=== PATIENT | female | born 1990 | race Caucasian/White ===

== ENCOUNTER 2016-04-29 10:52 | Emergency (ER) | payer SELFPAY ==
[~2016-04-29] VITALS: Ht 162.6 cm; Wt 121.0 kg
[2016-04-29] MEDS ORDERED: ONDANSETRON 4 MG (ZOFRAN) ORAL DISSOLVE TAB PO ONE (11:40)
[2016-04-29 12:26] VITALS: BP 104/53
== END 2016-04-29 12:26 | disposition home or self-care (01) ==
LOC: ED 10:54
DX: K52.9 Noninfective gastroenteritis and colitis, unspecified (principal); J06.9 Acute upper respiratory infection, unspecified; J98.01 Acute bronchospasm
CPT/HCPCS: 71020; 99283

== ENCOUNTER 2016-05-02 13:06 | Emergency (ER) | payer SELFPAY ==
[~2016-05-02] VITALS: Ht 162.6 cm; Wt 99.1 kg
[2016-05-02 14:06] VITALS: BP 116/81
== END 2016-05-02 14:07 | disposition home or self-care (01) ==
LOC: EDUNIT# 13:06 → ED 13:08
DX: J20.9 Acute bronchitis, unspecified (principal)
CPT/HCPCS: 99282; 99283

== ENCOUNTER 2016-08-07 15:21 | Emergency (ER) | payer SELFPAY ==
[~2016-08-07] VITALS: Ht 162.6 cm; Wt 97.8 kg
[~2016-08-07 15:21] MED LIST: AC325T; ACET-789 PO; ALBU8.5H6 IH; AZIT250T81 PO; BUSPAR PO; CEPH-331 PO; CODE118S2 PO; CYCL10TA45 PO; DESO1TAB PO; DPH25C PO; FLUO20CA42 PO; GFCD10B GT; HYDR-3702 PO; HYDR-3754 PO; HYDR-3811 PO; IBUP-1772 PO; LANS15CA16 PO; MDR10T PO; MECL100C PO; MEDR10TA PO; No home medications; ONDA4TAB8 PO; PENI500T PO; PRCD5U PO; PREN-108; SULF-228 PO; TRAM-25 PO; TRM50T PO; trazadone
--- OUTSIDE RECORDS SUMMARY | 2016-08-07 15:26 | XMS REPORT | Continuity of Care Document ---
Author Author [facility] Organization [facility] Address Unknown Phone Unavailable Support Name Relationship Address Phone FRANCIA GARRETT MD Caregiver [address] [place] [address] JON RUIZ Next Of Kin [address] [place], [place] [address] Insurance Providers Payer Name Policy Number Subscriber Name Relationship Self Pay Alexus Santos 16 Self / Same As Patient Chief Complaint and Reason for Visit Chief Complaint Gynecological Complaint Reason for Visit Vaginal bleeding Problems Medical Problems Problem Onset Date Status Dental caries 02/07/2013 Resolved Abnormal vaginal bleeding 03/17/2013 Resolved Allergic urticaria 05/09/2013 Resolved Nausea and vomiting ~08/09/2013 Resolved Acute upper respiratory infection ~08/09/2013 Resolved Normal labor 10/01/2013 Resolved Vaginal delivery Unknown Resolved Left ankle pain ~01/04/2014 Resolved Ankle injury ~01/04/2014 Resolved Viral syndrome ~02/11/2014 Resolved Dysfunctional uterine bleeding Unknown Resolved Palpitations Unknown Resolved Bronchitis Unknown Resolved Foot pain, left ~09/27/2014 Active Vaginal bleeding Unknown Active Medications Medication Dose Route Sig Days/Qty Instructions Order Date Discontinued Date Status Trimethoprim/Sulfamethoxazole 1 Ea ORAL TWICE A DAY 30 Qty 12/02/12 Discontinued Hydrocodone Bit/Acetaminophen 1 Tab ORAL Q 4H PRN 10 Qty Pain 12/02/12 02/07/13 Discontinued Acetaminophen NEEDED 02/07/13 03/16/13 Discontinued Vit #108/Iron/Fa DAILY 02/07/13 08/02/14 Discontinued Acetaminophen With Codeine 1 Each ORAL q4hrs prn 10 Qty 02/07/1303/16 Discontinued Lansoprazole 15 Mg ORAL TWICE A DAY 03/16/13 10/03/13 Discontinued Codeine/Promethazine Hcl 5 Ml ORAL EVERY 6 HOURS PRN cough 4 Qty 10/03/13 Discontinued Ibuprofen (Motrin) 600 Mg ORAL EVERY 6 HOURS 10/03/13 08/02/14 Discontinued Fluoxetine Hcl 20 Mg ORAL DAILY 01/04/14 08/02/14 Discontinued [trazadone] 02/14/14 08/02/14 Discontinued Medroxyprogesterone Acet 10 Mg ORAL DAILY 10 Qty 04/13/14 08/02/14 Discontinued [No home medications] 08/02/14 Active Guaifenesin/Codeine 10 Ml GT BEDTIME 120 Qty 2 teasp po qHS prn severe cough 08/06/14 09/27/14 Discontinued Tramadol Hcl 50 Mg ORAL THREE TIMES A DAY For pain 15 Qty 09/27/14 Active Social History No social history. Hospital Discharge Instructions No hospital discharge instructions. Plan of Care Discharge Date 11/12/14 8:33pm Disposition 01 HOME OR SELF-CARE Condition at Discharge Stable Prescriptions See Medications Section Additional Instructions/Education ED BERTO if any worse. Follow up with your doctor. Some of your test results may not be complete prior to your leaving the Emergency Department. The Emergency Department is not authorized to give test results over the phone. Please contact the doctor's office listed in this packet of information for your final results. Follow up with your primary care physician or return to the Emergency Department for worsening or worrisome symptoms. * Emergency Department phone number: [phone], x [phone]* MEDICAL RECORD If you need copies of your X-rays, call [phone]. If you need copies of your medical record, including lab results, a signed authorization for release of records will be required. A telephone call for release of Health Information is not allowed. BILLING Billing can sometimes be confusing and frustrating. To help avoid confusion in the future, please take a moment to acquaint yourself with the billing parties for services. SERVICE BILLING REPUBLICAN Emergency Room Services [facility] Physician Services [facility] X-rays [place] [facility] Patients will receive bills for services from the appropriate provider. If you have any questions about your [facility] bill, our staff will be happy to assist you. Please call [phone], and ask for the billing department. THANK YOU for choosing [facility] as your emergency care provider! Functional Status No functional status results. Allergies, Adverse Reactions, Alerts Allergen Type Severity Reaction Status Last Updated No Known Allergies Allergy Unknown Active 08/10/13 PEANUTS Allergy Unknown Active 08/10/13 Immunizations No immunization records. Vital Signs Acute Vital Signs Vital Response Date/Time Temperature (Fahrenheit) 98.4 Pulse 89 bpm Respirations 20 Height 5 ft 4 in Weight 226 lb Body Mass Index 38.0 kg/m^2 Results Test Source Date Result Interp. Ref. Range Comments Absolute Neutrophil December 02, 2012 9:20am 0.7 # Alanine Aminotransferase (ALT/SGPT) November 12, 2014 6:30pm 92 U/L H 30- 65 Albumin November 12, 2014 6:30pm 4.5 g/dL N 3.4-5.0 Albumin/Globulin Ratio November 12, 2014 6:30pm 1.250 N 1.1-1.8 Alkaline Phosphatase November 12, 2014 6:30pm 72 U/L N 38-126 Anion Gap November 12, 2014 6:30pm 13.7 MEQ/L N 3-15 Aspartate Amino Transf (AST/SGOT) November 12, 2014 6:30pm 76 U/L H 15-37 BUN/Creatinine Ratio November 12, 2014 6:30pm 13 N 10-20 Band Neutrophils % December 02, 2012 9:20am 5 % N 0-6 Basophils # (Auto) November 12, 2014 6:30pm 0.1 10^3uL Basophils % (Manual) December 02, 2012 9:20am 0 % N 0-2 Basophils (%) (Auto) November 12, 2014 6:30pm 1 % N 0-2 Blood Morphology Comment December 02, 2012 9:20am Normal NORMAL Blood Urea Nitrogen November 12, 2014 6:30pm 10 mg/dL N 7-18 Calcium Level November 12, 2014 6:30pm 9.4 mg/dL N 8.8-10.8 Calcium/Ionized Calcium Ratio November 12, 2014 6:30pm 3.8 mg/dL N 3.8- 4.6 Calculated Osmolality November 12, 2014 6:30pm 273 mosm/L L 280-300 Carbon Dioxide Level November 12, 2014 6:30pm 28 mmol/L N 22-29 Chloride Level November 12, 2014 6:30pm 105 mmol/L N 98-108 Cholesterol Level March 10, 2014 5:00am 157 mg/dL 0-199 Creatinine November 12, 2014 6:30pm 0.80 mg/dL N 0.6-1.2 Differential Total Cells Counted December 02, 2012 9:20am 100 Eosinophils # December 02, 2012 9:20am 0.0 # Eosinophils # (Auto) November 12, 2014 6:30pm 0.2 10^3uL Eosinophils % (Manual) December 02, 2012 9:20am 0 % N 0-4 Eosinophils (%) (Auto) November 12, 2014 6:30pm 2 % N 0-4 Estimat Glomerular Filtration Rate November 12, 2014 6:30pm 104.9 Estimated GFR (Non- November 12, 2014 6:30pm 86.7 Membranes Rupture (PAMG-1) September 13, 2013 11:41pm Negative Negative Collected by nurse? YHas specimen been collected/obtained? Y Folate March 10, 2014 5:00am 10.7 ng/mL 7.0-31.4 Glucose Level November 12, 2014 6:30pm 83 mg/dL N 70-110 HDL Cholesterol March 10, 2014 5:00am 24 mg/dL L 40-84 Hematocrit November 12, 2014 6:30pm 41.40 % N 35.00-45.00 Hemoglobin November 12, 2014 6:30pm 14.4 g/dL N 12.0-15.5 Hemoglobin A1c March 10, 2014 5:00am 4.9 % N 4.8-6.0 Human Chorionic Gonadotropin, Quant March 16, 2013 8:30pm 65803 MIU/ML H <6 HCG QUANT REFERENCE RANGES: MALE: <0.5 - 2.67 NON- FEMALE: <0.5 - 2.90 FEMALE: 0.2 - 1 WK: 5 - 50 1 - 2 WK: 50 - 500 2 - 3 WK: 100 - 5,000 3 - 4 WK: 500 - 10,000 4 - 5 WK: 1,000 - 50,000 5 - 6 WK: 10,000 - 100,000 6 - 8 WK: 15,000 - 200,000 8 - 12 WK: 10,000 - 100,000 LDL Cholesterol, Calculated March 10, 2014 5:00am 80 mg/dL 0-130 Lymphocytes # December 02, 2012 9:20am 1.1 # Lymphocytes # (Auto) November 12, 2014 6:30pm 2.2 X10^3 Lymphocytes % (Manual) December 02, 2012 9:20am 8 % L 20-46 Lymphocytes (%) (Auto) November 12, 2014 6:30pm 24 % N 20-46 Mean Corpuscular Hemoglobin November 12, 2014 6:30pm 29.1 PG N 26.0-34.0 Mean Corpuscular Hemoglobin Concent November 12, 2014 6:30pm 34.8 g/dL N 31.0-37.0 Mean Corpuscular Volume November 12, 2014 6:30pm 84 FL N 80-100 Mean Platelet Volume November 12, 2014 6:30pm 11.6 FL H 6.0-9.5 Monocytes # December 02, 2012 9:20am 0.0 # Monocytes # (Auto) November 12, 2014 6:30pm 0.7 X10^3 Monocytes % (Manual) December 02, 2012 9:20am 0 % L 3-11 Monocytes (%) (Auto) November 12, 2014 6:30pm 8 % N 3-11 Neutrophils # December 02, 2012 9:20am 12.2 # Neutrophils # (Auto) November 12, 2014 6:30pm 6.0 X10^3 Neutrophils (%) (Auto) November 12, 2014 6:30pm 66 % N 51-67 Platelet Count November 12, 2014 6:30pm 222 10^3uL N 150-450 Potassium Level November 12, 2014 6:30pm 3.9 mmol/L N 3.5-5.1 Red Blood Count November 12, 2014 6:30pm 4.95 10^6uL N 4.00-5.00 Red Cell Distribution Width November 12, 2014 6:30pm 12.8 % N 11.8-15.6 Segmented Neutrophils % December 02, 2012 9:20am 87 % H 51-67 Sodium Level November 12, 2014 6:30pm 143 mmol/L N 135-150 Streptococcus Screen February 14, 2014 1:12am Negative Negative Thyroid Stimulating Hormone (TSH) March 10, 2014 5:00am 2.80 UIU/ML N 0.46-4.68 --- 03/10/14 0800 ---TSH previously reported as: 4.90 H UIU/ML Thyroxine (T4) March 10, 2014 5:00am 7.9 ug/dL 4.8-11.7 Total Bilirubin November 12, 2014 6:30pm 0.5 mg/dL DN 0.1-1.0 Total Protein November 12, 2014 6:30pm 8.1 g/dL N 6.4-8.5 Total Triiodothyronine March 10, 2014 5:00am 117 ng/dL 87-178 Triglycerides Level March 10, 2014 5:00am 265 mg/dL H 0-149 Urine Bacteria November 12, 2014 6:13pm None seen /HPF Urine collection method Clean Catch Urine Bilirubin November 12, 2014 6:13pm Negative Negative Urine collection method Clean Catch Urine Blood October 01, 2013 12:00am Negative Negative Collected by nurse? YHas specimen been collected/obtained? Y Urine Clarity November 12, 2014 6:13pm Clear Urine collection method Clean Catch Urine Collection Type November 12, 2014 6:13pm Clean catch Urine collection method Clean Catch Urine Color November 12, 2014 6:13pm Yellow Urine collection method Clean Catch Urine Glucose (UA) November 12, 2014 6:13pm Negative Negative Urine collection method Clean Catch Urine Ketones November 12, 2014 6:13pm Negative Negative Urine collection method Clean Catch Urine Leukocyte Esterase November 12, 2014 6:13pm Negative Negative Urine collection method Clean Catch Urine Nitrite November 12, 2014 6:13pm Negative Negative Urine collection method Clean Catch Urine Protein November 12, 2014 6:13pm Negative Negative Urine collection method Clean Catch Urine RBC November 12, 2014 6:13pm 5-10 /HPF H Urine collection method Clean Catch Urine RBC (Auto) November 12, 2014 6:13pm 2+ H Negative Urine collection method Clean Catch Urine Specific [place] November 12, 2014 6:13pm >=1.030 1.005-1.030 Urine collection method Clean Catch Urine Squamous Epithelial Cells November 12, 2014 6:13pm 2-5 /LPF Urine collection method Clean Catch Urine Urobilinogen November 12, 2014 6:13pm 1.0 mg/dL 0.2-1.0 Urine collection method Clean Catch Urine WBC November 12, 2014 6:13pm 0-2 /HPF Urine collection method Clean Catch Urine pH November 12, 2014 6:13pm 5.5 5.0 - 8.0 Urine collection method Clean Catch VLDL Cholesterol March 10, 2014 5:00am 53 mg/dL H 0-28 Vitamin B12 Level March 10, 2014 5:00am 665 pg/mL 213-816 Vitamin D 25-Hydroxy March 10, 2014 5:00am 31 ng/mL 30-74 The desirable level of 25-Hydroxy Vitamin D Total(D2 + D3) is 30-74 ng/mL.A level consistently >200 is potentially toxic. Vitamin D2 March 10, 2014 5:00am <7 ng/mL () Vitamin D3 March 10, 2014 5:00am 31 ng/mL () Volume Urine Centrifuged November 12, 2014 6:13pm 12 ml Urine collection method Clean Catch White Blood Count November 12, 2014 6:30pm 9.07 10^3uL N 4.0-11.0 Blood Culture Peripheral-:Lab Indicates After [place]io December 02, 2012 9: 20pm No Growth in 5 days Wet Prep Vaginal November 12, 2014 6:50pm Group A Streptococcus Culture Throat February 14, 2014 1:12am Procedures No known history of procedures. Encounters Encounter Location Date/Time Departed Emergency Room [facility] 11/12/14 5:45pm Recent Diagnosis
--- OUTSIDE RECORDS SUMMARY | 2016-08-07 15:26 | XMS REPORT | Continuity of Care Document ---
Author Author [facility] Organization [facility] Address Unknown Phone Unavailable Support Name Relationship Address Phone FRANCIA GARRETT MD Caregiver [address] [place] [address] JON RUIZ Next Of Kin [address] [place], [place] [address] Insurance Providers Payer Name Policy Number Subscriber [...] worrisome symptoms. * Emergency Department phone number: [phone], x [phone]* MEDICAL RECORD If you need copies of your X-rays, call [phone] x [phone]. If you need copies of [...] the billing parties for services. SERVICE BILLING LIBERTARIAN Emergency Room Services [facility] Physician Services [facility] X-rays [place] [facility] Patients will receive bills for services from the appropriate provider. If you have any questions about your [facility] bill, our staff will be happy to assist you. Please call [phone], and ask for the billing department. THANK YOU for choosing [facility] as your emergency care provider! Functional Status [...] Chorionic Gonadotropin, Quant March 16, 2013 8:30pm 97637 MIU/ML H <6 HCG QUANT REFERENCE RANGES: [...] Urine collection method Clean Catch Urine Specific [place] November 12, 2014 6:13pm >=1.030 1.005-1.030 Urine [...] Encounters Encounter Location Date/Time Departed Emergency Room [facility] 11/12/14 5:45pm Recent Diagnosis
[2016-08-07] MEDS ORDERED: TETRACAINE 0.5% OPHTHALMIC SOLUTION 4 ML BTL ONE (16:24)
[2016-08-07] MEDS ORDERED: DEXAMETHASONE OS ONE (16:25)
[2016-08-07] MEDS ORDERED: [UNRECOGNIZED DRUG - OTHER] OS ONE (16:25)
[2016-08-07] MEDS ORDERED: TETRACAINE 0.5% OPHTHALMIC SOLUTION 4 ML BTL OS ONE (16:25)
[2016-08-07] MEDS ORDERED: NEOMYCIN OS ONE (16:25)
[2016-08-07 18:57] VITALS: BP 136/89
== END 2016-08-07 16:55 | disposition home or self-care (01) ==
LOC: ED 15:22
DX: T15.92XA Foreign body on external eye, part unspecified, left eye, initial encounter (principal); X58.XXXA Exposure to other specified factors, initial encounter; Y93.E8 Activity, other personal hygiene
CPT/HCPCS: 99282; 99283